=== PATIENT | male | born 1945 | race Caucasian/White ===

== ENCOUNTER 2020-01-18 10:18 | Emergency (ER) | payer MEDICARE, BC ==
--- NOTE | 2020-01-18 11:14 | EDM.PDOC ---
ED HPI GENERAL MEDICAL PROBLEM - General Chief Complaint: Cardiovascular Problem Stated Complaint: PAIN IN L ARM Time Seen by Provider: 01/18/20 10:35 Source of Information: Reports: Patient History Limitations: Reports: No Limitations - History of Present Illness INITIAL COMMENTS - FREE TEXT/NARRATIVE: 74-year-old male arrives with left arm pain for the past hour and a half. He has no coronary artery disease history, had a stress test that was -7 years ago but does have type 2 diabetes. 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 He woke this morning and felt fine, but an hour after being awake he developed left arm pain that was very sharp and intense, mostly in the antecubital area and into the left forearm but radiating up into the shoulder as well. He became lightheaded nauseous, diaphoretic but had no shortness of breath or chest pain. He took 3 full strength aspirin and came into the hospital. By the time he arrived the pain was a dull ache in his arm and he was feeling much better, still had no shortness of breath or chest pain. The pain could not be reproduced with range of motion or movement of the arm, could not be reproduced with palpation of the arm. He has not had this type of pain in the past. An EKG was done on arrival which showed some past changes like right bundle branch block and Q waves but no acute findings. We had none for comparison. Onset: Sudden Duration: Hour(s): (Just under 2 hours ago) Location: Reports: Upper Extremity, Left Associated Symptoms: Reports: Diaphoresis, Malaise, Other (Nausea but no vomiting) Left Arm Pain Score (Numeric/FACES): 2 - Related Data Allergies Allergy/AdvReac Type Severity Reaction Status Date / Time No Known Allergies Allergy Verified 01/18/20 10:29 Home Meds: Home Meds atorvaSTATin [Lipitor] 10 mg PO DAILY 01/18/20 [History] glipiZIDE [Glipizide ER] 5 mg PO DAILY 01/18/20 [History] metFORMIN [Glucophage] 500 mg PO BID 01/18/20 [History] Past Medical History Cardiovascular History: Reports: High Cholesterol Endocrine/Metabolic History: Reports: Diabetes, Type II Social & Family History - Tobacco Use Smoking Status *Q: Never Smoker - Caffeine Use Caffeine Use: Reports: Coffee, Soda - Recreational Drug Use Recreational Drug Use: No ED ROS GENERAL - Review of Systems Review Of Systems: See Below Constitutional: Reports: Malaise. Denies: Fever, Chills HEENT: Reports: No Symptoms Respiratory: Denies: Shortness of Breath, Cough, Sputum Cardiovascular: Denies: Chest Pain, Dyspnea on Exertion, Palpitations GI/Abdominal: Reports: Nausea. Denies: Abdominal Pain, Vomiting : Reports: No Symptoms Skin: Reports: Diaphoresis Neurological: Reports: Dizziness. Denies: Headache ED EXAM, GENERAL - Physical Exam Exam: See Below Exam Limited By: No Limitations General Appearance: Alert, No Apparent Distress Eye Exam: Bilateral Eye: Normal Inspection Head: Atraumatic Neck: Normal Inspection, Supple, Non-Tender Respiratory/Chest: Lungs Clear, Other (I cannot reproduce chest pain to palpation or movement of the left arm) Cardiovascular: Regular Rate, Rhythm, No Murmur GI/Abdominal: Soft, Non-Tender Extremities: Normal Inspection, Other (Despite sensation of pain in the knee left arm, there is no objective findings, no increased pain with palpation or movement) Neurological: Alert, Oriented Psychiatric: Normal Affect, Normal Mood EKG INTERPRETATION QRS: RBBB Course - Vital Signs Last Recorded V/S: Last Vital Signs Temp 96 F L 01/18/20 10:37 Pulse 59 L 01/18/20 10:37 Resp 16 01/18/20 10:37 BP 140/45 L 01/18/20 10:37 Pulse Ox 99 01/18/20 10:37 - Orders/Labs/Meds Orders: Active Orders 24 hr Category Date Time Status EKG Documentation Completion [RC] ASDIRECTED Care 01/18/20 10:46 Active EKG 12 Lead [EK] Routine Ther 01/18/20 10:46 Ordered Labs: Laboratory Tests 01/18/20 01/18/20 Range/Units 10:56 10:56 WBC 6.0 (4.5-11.0) K/uL RBC 4.48 (4.30-5.90) M/uL Hgb 13.8 (12.0-15.0) g/dL Hct 40.3 (40.0-54.0) % MCV 90 (80-98) fL MCH 31 (27-31) pg MCHC 34 (32-36) % Plt Count 148 L (150-400) K/uL Neut % (Auto) 61 (36-66) % Lymph % (Auto) 32 (24-44) % Tift % (Auto) 6 (2-6) % Eos % (Auto) 1 L (2-4) % Baso % (Auto) 0 (0-1) % Sodium 137 L (140-148) mmol/L Potassium 4.9 (3.6-5.2) mmol/L Chloride 102 (100-108) mmol/L Carbon Dioxide 29 (21-32) mmol/L Anion Gap 10.9 (5.0-14.0) mmol/L BUN 21 H (7-18) mg/dL Creatinine 1.0 (0.8-1.3) mg/dL Est Cr Clr Drug Dosing 65.90 mL/min Estimated GFR (MDRD) > 60 (>60) Glucose 329 H (74-106) mg/dL Calcium 8.4 L (8.5-10.1) mg/dL Total Bilirubin 0.9 (0.2-1.0) mg/dL AST 20 (15-37) U/L ALT 26 (12-78) U/L Alkaline Phosphatase 54 (46-116) U/L Troponin I < 0.017 (0.000-0.056) ng/mL Total Protein 6.4 (6.4-8.2) g/dL Albumin 3.3 L (3.4-5.0) g/dL Globulin 3.1 (2.3-3.5) g/dL Albumin/Globulin Ratio 1.1 L (1.2-2.2) - Re-Assessments/Exams Free Text/Narrative Re-Assessment/Exam: 01/18/20 11:17 EKG shows no acute findings, CBC CMP and troponin were obtained. 01/18/20 11:44 Patient remained asymptomatic while in the emergency room pending labs. Labs were reassuring, troponin was 0. I asked the patient to stay for repeat troponin but he wanted to be discharged and return, this was arranged for 2:00 this afternoon. He understands that if his troponin elevates he will have to reregister and a cardiology consult will be needed. I think it will be stable. Departure - Departure Time of Disposition: 11:54 Disposition: Home, Self-Care 01 Clinical Impression: Left arm pain, Syncope, near Instructions: Near-Syncope, [id number] Referrals: PCP,None [Primary Care Provider] - Forms: ED Department Discharge Care Plan Goals: Return after 2 PM for repeat blood test. Return sooner if symptoms recur with chest pain or shortness of breath. Sepsis Event Note - Evaluation Sepsis Screening Result: No Definite Risk - Focused Exam Vital Signs: Vital Signs Temp Pulse Resp BP Pulse Ox 01/18/20 10:37 96 F L 59 L 16 140/45 L 99 01/18/20 10:36 96 F L 59 L 16 140/45 L 99 Date Exam was Performed: 01/18/20 Time Exam was Performed: 13:06 - My Orders Last 24 Hours: My Active Orders 01/18/20 10:46 EKG Documentation Completion [RC] ASDIRECTED EKG 12 Lead [EK] Routine - Assessment/Plan Last 24 Hours: My Active Orders 01/18/20 10:46 EKG Documentation Completion [RC] ASDIRECTED EKG 12 Lead [EK] Routine
== END 2020-01-18 11:54 | disposition home or self-care (01) ==
LOC: JP.ED 10:18
DX: M79.602 Pain in left arm (principal); R55 Syncope and collapse; E78.00 Pure hypercholesterolemia, unspecified; E11.9 Type 2 diabetes mellitus without complications; Z79.899 Other long term (current) drug therapy; Z79.84 Long term (current) use of oral hypoglycemic drugs
CPT/HCPCS: 36415; 80053; 84484; 85025; 93005; 93010; 99283-25; 99284